=== PATIENT | female | born 1955 | race Caucasian/White ===

== ENCOUNTER 2020-03-24 07:47 | Outpatient (CLI) | payer MEDICARE, SELFPAY ==
--- NOTE | ~2020-03-24 | MM_ITS ---
EXAMINATION: MM screening [facility] w matthew HISTORY: Screening mammogram TECHNIQUE: Craniocaudal and mediolateral oblique 3-D tomosynthesis images were obtained and synthetic 2-D images were generated. CAD analysis was submitted and interpreted. COMPARISON: 03/09/2019, 02/18/2018, 01/15/2017 bilateral digital screening mammogram examinations BREAST PARENCHYMAL COMPOSITION: There are scattered areas of fibroglandular density. FINDINGS: There is no evidence of suspicious mass, calcification, or architectural distortion to sugg est malignancy in either breast. There has been no suspicious interval change. IMPRESSION: 1. No mammographic evidence of malignancy. 2. Recommend routine screening mammography in one year. BI-RADS Category 1: Negative Reviewed, dictated and finalized at location A.
== END 2020-03-24 07:48 | disposition home or self-care (01) ==
LOC: ANHIMG 07:54
PROVIDERS: PCP Internal Medicine; Visit Provider Internal Medicine
DX: Z12.31 Encounter for screening mammogram for malignant neoplasm of breast (principal)
CPT/HCPCS: 77063; 77067

== ENCOUNTER → 2021-06-12 10:15 | Outpatient (CLI) | payer MEDICARE, SELFPAY ==
--- NOTE | ~2021-06-12 | DEXA_ITS ---
Bone Density Report Name: Christine Perez Age: 65 Sex: Female Ethnicity: White Date of : 1955 Indication: postmenopausal; screening for osteoporosis; height loss; Referring Provider: Zehra Coleman Study: Bone densitometry was performed. Exam Date: June 12, 2021 Accession number: [id number] Bone Density: Region BMD T-score Z-score Classification AP Spine (L1, L2, L4) 1.244 1.9 3.8 Normal Femoral Neck (Left) 0.819 -0.3 1.4 Normal Total Hip (Left) 1.044 0.8 2.2 Normal Femoral Neck (Right) 0.838 -0.1 1.5 Normal Total Hip (Right) 1.072 1.1 2.4 Normal Total Hip Mean 1.058 1.0 2.3 Normal World Health Organization criteria for BMD impression classify patients as: Normal (T-score at or above -1.0), Osteopenia (T-score between -1.0 and -2.5), or Osteoporosis (T-score at or below -2.5). 10-year Fracture Risk: FRAX not reported because: All T-scores for Spine Total, Hip Total, Femoral Neck at or above -1.0 Clinical Information Provided by Patient: Has used the following medications: Vitamin D, Calcium Patient maximum height was 66 Menopause Age: 50 Drinks caffeinated beverages Onset of menses at age 13 Number of children 3 Impression: The patient has normal bone mass. Discussion: BONE DENSITY IS ABOVE THE MINIMUM DESIRABLE LEVEL AT ALL SKELETAL SITES TESTED. This patient?s bone mineral density is above the minimum desirable level (T-score -1.0 or better) at all sites measured. The patient should follow a healthful lifestyle (good nutrition with adequate calcium and vitamin D, and appropriate weight-bearing exercise). Follow-Up: Consider repeating this study in 5 years or sooner if there is some new clinical indication. Reported by: [facility] on 06/12/2021 10:43:00 AM. Reviewed, dictated and finalized at location ADarnell JOAQUIN
--- NOTE | ~2021-06-12 | MM_ITS ---
EXAMINATION: MM screening [facility] BI w matthew HISTORY: 03/24/2020 TECHNIQUE: Craniocaudal and mediolateral oblique 3-D tomosynthesis images were obtained and synthetic 2-D images were generated. CAD analysis was submitted and interpreted. COMPARISON: 03/24/2020, 03/09/2019, 02/18/2018 BREAST PARENCHYMAL COMPOSITION: There are scattered areas of fibroglandular density. FINDINGS: A stable intramammary lymph node is noted in the lower inner right breast. There is no evid ence of suspicious mass, calcification, or architectural distortion to suggest malignancy in either b reast. There has been no suspicious interval change. IMPRESSION: 1. No mammographic evidence of malignancy. 2. Recommend routine screening mammography in one year. BI-RADS Category 2: Benign finding(s). Reviewed, dictated and finalized at location A.
== END ==
PROVIDERS: PCP Internal Medicine; Visit Provider Student in an Organized Health Care Education/Training Program
DX: Z12.31 Encounter for screening mammogram for malignant neoplasm of breast (principal); Z78.0 Asymptomatic menopausal state
CPT/HCPCS: 77063; 77067; 77080

== ENCOUNTER 2022-07-01 09:59 | Outpatient (CLI) | payer MEDICARE, SELFPAY ==
--- NOTE | ~2022-07-01 | MM_ITS ---
EXAMINATION: MM screening [facility] w matthew HISTORY: Screening TECHNIQUE: Craniocaudal and mediolateral oblique 3-D tomosynthesis images were obtained and synthetic 2-D images were generated. CAD analysis was submitted and interpreted. COMPARISON: Comparison to multiple prior studies sequentially, with oldest reviewed study dated 09/01. BREAST PARENCHYMAL COMPOSITION: There are scattered areas of fibroglandular density. FINDINGS: There is no evidence of suspicious mass, calcification, or architectural distortion to sugg est malignancy in either breast. There has been no suspicious interval change. IMPRESSION: 1. No mammographic evidence of malignancy. 2. Recommend routine screening mammography in one year. BI-RADS Category 1: Negative Reviewed, dictated and finalized at location A.
== END 2022-07-01 10:00 | disposition home or self-care (01) ==
LOC: ANHIMG 10:01
PROVIDERS: PCP Internal Medicine; Visit Provider Internal Medicine
DX: Z12.31 Encounter for screening mammogram for malignant neoplasm of breast (principal)
CPT/HCPCS: 77063; 77067

== ENCOUNTER 2023-09-16 08:16 | Outpatient (CLI) | payer MEDICARE, SELFPAY ==
--- NOTE | ~2023-09-16 | MM_ITS ---
EXAMINATION: MM screening [facility] w matthew HISTORY: Screening TECHNIQUE: Craniocaudal and mediolateral oblique 3-D tomosynthesis images were obtained and synthetic 2-D images were generated. CAD analysis was submitted and interpreted. COMPARISON: Comparison to multiple prior studies sequentially, with oldest reviewed study dated 01/15. BREAST PARENCHYMAL COMPOSITION: Breast composed of scattered areas of fibroglandular density FINDINGS: There is no evidence of suspicious mass, calcification, or architectural distortion to sugg est malignancy in either breast. There has been no suspicious interval change. IMPRESSION: 1. No mammographic evidence of malignancy. 2. Recommend routine screening mammography in one year. BI-RADS Category 1: Negative Reviewed, dictated and finalized at location A.
== END 2023-09-16 08:17 | disposition home or self-care (01) ==
LOC: ANHIMG 08:17
PROVIDERS: PCP Internal Medicine; Visit Provider Internal Medicine
DX: Z12.31 Encounter for screening mammogram for malignant neoplasm of breast (principal)
CPT/HCPCS: 77063; 77067

== ENCOUNTER 2024-02-11 07:02 | Outpatient (CLI) | payer MEDICARE, SELFPAY ==
--- NOTE | ~2024-02-11 | MR_ITS ---
MRI of the left knee Clinical history: Pain Technique: Coronal proton density and proton density-weighted images, sagittal proton-density and T2 fat-sat images, and axial proton-density fat-saturated images were acquired. Findings: Anterior and posterior cruciate ligaments are intact. Medial collateral ligament and the la teral collateral ligament complex are intact. Popliteus tendon is intact. Medial and lateral menisci are intact, without definite tear. There is intrasubstance degenerative si gnal of the posterior horn of the medial meniscus. There is mild chondral thinning of the lateral femoral condyle. There is mild to moderate chondral th inning of the medial femoral condyle. 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 Femoral trochlear cartilage is mildly thinned. Small tricompartme ntal osteophytes are present. Extensor mechanism is intact. No significant joint effusion or Suggs's cyst. Impression: Mild to [id number] tricompartmental degenerative change, as detailed above, worst at the patell ofemoral compartment. No ligamentous injury or meniscal tear evident. Reviewed, dictated and finalized at location . Impression: Mild to [id number] tricompartmental degenerative change, as detailed abov e, worst at the patellofemoral compartment. No ligamentous injury or meniscal tear evident.
== END 2024-02-11 07:03 ==
LOC: MICIMG 07:05
PROVIDERS: PCP Family Medicine Sports Medicine; Visit Provider Internal Medicine
DX: M17.12 Unilateral primary osteoarthritis, left knee (principal)
CPT/HCPCS: 73721

== ENCOUNTER 2024-04-24 21:39 | Emergency (ER) | payer MEDICARE, SELFPAY ==
--- NOTE | ~2024-04-24 | XR_ITS ---
EXAMINATION: XR chest 1V portable DATE: 04/24/2024 22:36 INDICATION: Palpitations. TECHNIQUE: A single frontal view of the chest was obtained. COMPARISON: None. FINDINGS: There is mild atelectasis in the lower lung zones. No pleural effusion or pneumothorax. The heart size is normal. IMPRESSION: 1. Mild atelectasis in the lower lung zones. Reviewed, dictated and finalized at location E.
[2024-04-24 21:43] VITALS: BP 130/55; PULSE 69; RESP 12; TEMP 36.7; O2SAT 97
--- NOTE | 2024-04-24 21:43 | ECG_ITS ---
SEE SCANNED COPY FOR CONFIRMED REPORT MTDD
[2024-04-24 22:26] VITALS: BP 119/66; PULSE 71; RESP 15; O2SAT 97
[2024-04-24 22:35] LABS: Basophils Absolute Auto 0.1 K/mm3 (0.0-0.1); Basophils Percent Auto 0.8 % (0.2-1.2); Eosinophils Absolute Auto 0.3 K/mm3 (0-0.3); Hematocrit 38.8 % (37.0-47.0); Hemoglobin 12.7 g/dL (12.0-15.0); Immature Granulocyte Absolute 0.01 K/mm3 (0.00-0.031); Immature Granulocyte Percent A 0.2 % (0-0.5); Lymphocytes Absolute Auto 3.39 K/mm3 (0.9-3.2); Lymphocytes Percent Auto 51.5 % (18.3-44.2); Mean Corpuscular HGB Conc 32.7 g/dl (32-36); Mean Corpuscular Hemoglobin 29.3 pg (26-34); Mean Corpuscular Volume 89.4 fl (80-100); Mean Platelet Volume 12.3 fl (7.4-10.4); Monocytes Absolute Auto 0.7 K/mm3 (0.1-0.6); Monocytes Percent Auto 11.2 % (2.6-8.5); Neutrophils Absolute Auto 2.1 K/mm3 (1.3-6.7); Neutrophils Percent Auto 32.3 % (45.5-73.1); Platelet Count Result 203 k/mm3 (150-375); Red Blood Count 4.34 M/mm3 (4.2-5.4); White Blood Count 6.6 K/mm3 (4.5-10.0)
[2024-04-24 22:47] LABS: Alanine Aminotransferase 17 U/L (6-35); Albumin Level 4.4 g/dL (3.5-5.1); Alkaline Phosphatase 78 U/L (38-126); Anion Gap 7 mmol/L (4-12); Aspartate Amino Transferase 26 U/L (14-36); Bilirubin,Total 0.3 mg/dL (0.2-1.3); Blood Urea Nitrogen 19 mg/dL (7-17); Calcium 9.8 mg/dL (8.4-10.2); Carbon Dioxide 28 mmol/L (22-30); Chloride 108 mmol/L (98-107); Estimated CRCL calculation 52 ml/min; Estimated Glomerular Filt Rate > 60; Glucose 114 mg/dL (65-110); Magnesium 2.1 mg/dL (1.6-2.3); Potassium 3.9 mmol/L (3.4-5.0); Sodium 143 mmol/L (137-145)
[2024-04-24 22:53] LABS: D Dimer 1.06 ug/mL (<0.48)
[2024-04-24 22:57] LABS: Troponin I 0.012 ng/mL (0.000-0.034)
--- NOTE | 2024-04-24 23:40 | ED.GENADULT ---
HPI - General Adult General Chief complaint: Recheck/Abnormal Lab/Rx Stated complaint: tachy Time Seen by Provider: 04/24/24 21:49 Related Data Home Medications Medication Instructions Recorded Confirmed naproxen sodium 220 mg capsule 220 mg PO BID PRN 05/01/20 (Aleve) red yeast rice 600 mg capsule 600 mg PO DAILY 05/01/20 turmeric 400 mg capsule mg PO 05/01/20 Allergies Allergy/AdvReac Type Severity Reaction Status Date / Time No Known Allergies Allergy Mild Verified 04/24/24 21:53 [facility] Past Medical History Medical History High cholesterol Insomnia Surgical History Surgical History H/O toe surgery History of section x 3 History of open heart surgery Social History Social History Smoking status: Never smoker Second hand tobacco smoke exposure: No Alcohol intake: never Course Vital Signs Vital signs: Vital Signs Temperature 98.1 F 04/24/24 21:43 Pulse Rate 69 04/24/24 21:43 Respiratory Rate 12 04/24/24 21:43 Blood Pressure 130/55 L 04/24/24 21:43 Pulse Oximetry 97 04/24/24 21:43 Oxygen Delivery Room Air 04/24/24 21:43 Temperature 98.1 F 04/24/24 21:43 Pulse Rate 71 04/24/24 22:26 Respiratory Rate 15 04/24/24 22:26 Blood Pressure 119/66 04/24/24 22:26 Pulse Oximetry 97 04/24/24 22:26 Oxygen Delivery Room Air 04/24/24 21:43 Medical Decision Making Vital Signs Vital Signs: Vital Signs Temperature 98.1 F 04/24/24 21:43 Pulse Rate 69 04/24/24 21:43 Respiratory Rate 12 04/24/24 21:43 Blood Pressure 130/55 L 04/24/24 21:43 Pulse Oximetry 97 04/24/24 21:43 Oxygen Delivery Room Air 04/24/24 21:43 Temperature 98.1 F 04/24/24 21:43 Pulse Rate 71 04/24/24 22:26 Respiratory Rate 15 04/24/24 22:26 Blood Pressure 119/66 04/24/24 22:26 Pulse Oximetry 97 04/24/24 22:26 Oxygen Delivery Room Air 04/24/24 21:43 Lab Data 04/24/24 22:24 04/24/24 22:24 Labs: Lab Results 04/24/24 Range/Units 22:24 WBC 6.6 (4.5-10.0) K/mm3 RBC 4.34 (4.2-5.4) M/mm3 Hgb 12.7 (12.0-15.0) g/dL Hct 38.8 (37.0-47.0) % MCV 89.4 (80-100) fl MCH 29.3 (26-34) pg MCHC 32.7 (32-36) g/dl RDW 13.0 (11.5-14.5) % Plt Count 203 (150-375) k/mm3 MPV 12.3 H (7.4-10.4) fl Immature Gran % (Auto) 0.2 (0-0.5) % Neut % (Auto) 32.3 L (45.5-73.1) % Lymph % (Auto) 51.5 H (18.3-44.2) % [place] % (Auto) 11.2 H (2.6-8.5) % Eos % (Auto) 4.0 (0-4.4) % Baso % (Auto) 0.8 (0.2-1.2) % Lymph # (Auto) 3.39 H (0.9-3.2) K/mm3 [place] # (Auto) 0.7 H (0.1-0.6) K/mm3 Eos # (Auto) 0.3 (0-0.3) K/mm3 Baso # (Auto) 0.1 (0.0-0.1) K/mm3 Abs Immat Gran (auto) 0.01 (0.00-0.031) K/mm3 Absolute Neuts (auto) 2.1 (1.3-6.7) K/mm3 Absolute Nucleated RBC 0.000 (0.0-0.012) K/mm3 Nucleated RBC % 0.0 (0.0-0.2) % D-Dimer 1.06 H (<0.48) ug/mL Sodium 143 (137-145) mmol/L Potassium 3.9 (3.4-5.0) mmol/L Chloride 108 H (98-107) mmol/L Carbon Dioxide 28 (22-30) mmol/L Anion Gap 7 (4-12) mmol/L BUN 19 H (7-17) mg/dL Creatinine 0.80 (0.7-1.0) mg/dL Estim Creat Clear Calc 52 ml/min Estimated GFR > 60 (59 - ) Glucose 114 H (65-110) mg/dL Calcium 9.8 (8.4-10.2) mg/dL Magnesium 2.1 (1.6-2.3) mg/dL Total Bilirubin 0.3 (0.2-1.3) mg/dL AST 26 (14-36) U/L ALT 17 (6-35) U/L Alkaline Phosphatase 78 (38-126) U/L Troponin I 0.012 (0.000-0.034) ng/mL Total Protein 9.0 H (6.3-8.2) g/dL Albumin 4.4 (3.5-5.1) g/dL TSH (Reflex) 1.770 (0.465-4.68) uIU/mL Discharge Plan Discharge Prescriptions: No Action naproxen sodium [Aleve] 220 mg capsule 220 mg PO BID PRN red yeast rice 600 mg capsule 600 mg PO DAILY Rx Instructions:
--- NOTE | 2024-04-24 23:40 | ED.ARRPALP ---
HPI - Arrhythmia/Palpitations General Chief Complaint: Recheck/Abnormal Lab/Rx Stated Complaint: tachy Time Seen by Provider: 04/24/24 21:49 Source: patient Limitations: no limitations History of Present Illness HPI narrative: Patient is a 68-year-old female presents to the emergency department complaining of palpitations. Patient notes that her watch traction heart rate and the past 2 nights she has had brief episodes in which her heart rate spontaneously goes up to 120s to 130s when she has the rest and not feeling anxious and she does watch is a climb mid last for approximately 5 minutes and then goes away and when it is happening she sometimes feels like her heart is racing and has maybe some slight shortness of breath with this all goes away as the heart rate goes down. Patient notes that she does not have any history of any abnormal heart rhythms or thyroid disease and she has been overall maintaining well hydration and denies any caffeine or stimulant use or any new or change medications. Patient is seeing her doctor or [facility] an outpatient for something unrelated and so 1 a couple weeks ago and is scheduled to get a CTA of her chest for the coronary arteries in addition to an echocardiogram but was not having any of this at that time. Patient denies history of blood clots. Patient denies chest pain, lightheadedness, numbness, weakness. Related Data Home Medications Medication Instructions Recorded Confirmed naproxen sodium 220 mg capsule 220 mg PO BID PRN 05/01/20 (Aleve) red yeast rice 600 mg capsule 600 mg PO DAILY 05/01/20 turmeric 400 mg capsule mg PO 05/01/20 Allergies Allergy/AdvReac Type Severity Reaction Status Date / Time No Known Allergies Allergy Mild Verified 04/24/24 21:53 Review of Systems Review of Systems: All systems reviewed & are unremarkable except as noted in HPI and below PMFSH Past Medical History Medical History High cholesterol Insomnia Surgical History Surgical History H/O toe surgery History of section x 3 History of open heart surgery Social History Social History Smoking status: Never smoker Second hand tobacco smoke exposure: No Alcohol intake: never Comments At time of signature, I have reviewed and agree with nursing past medical, surgical, social and family history unless otherwise noted. Please see the nursing chart for further information. There is no relevant family history pertinent to the presenting complaint. Exam Narrative: CONST: No acute distress. Well nourished. HENMT: Head is normocephalic and atraumatic. Moist mucous membranes. No posterior oropharynx erythema. EYES: No conjunctival icterus, injection, or pallor. PERRL. NECK: No meningeal signs. No thyroid tenderness to palpation or palpable thyromegaly. RESP: Able to speak in full sentences. Normal respiratory effort. CTAB. CARDIO: Regular rate. Regular rhythm. 2+ DP and radial pulses bilaterally. GI: Nondistended. No tenderness to palpation. Soft. : No CVA tenderness to palpation. SKIN: No rashes or lesions noted on exposed skin. NEURO: Oriented x3. Moves all extremities. EXTREM/MSK/BACK: No pedal edema. PSYCH: Normal affect. Course Vital Signs Vital signs: Vital Signs Temperature 98.1 F 04/24/24 21:43 Pulse Rate 69 04/24/24 21:43 Respiratory Rate 12 04/24/24 21:43 Blood Pressure 130/55 L 04/24/24 21:43 Pulse Oximetry 97 04/24/24 21:43 Oxygen Delivery Room Air 04/24/24 21:43 Temperature 98.1 F 04/24/24 21:43 Pulse Rate 71 04/24/24 22:26 Respiratory Rate 15 04/24/24 22:26 Blood Pressure 119/66 04/24/24 22:26 Pulse Oximetry 97 04/24/24 22:26 Oxygen Delivery Room Air 04/24/24 21:43 MDM - Arrhythmia/Palpitations MDM Narrative Me
== END 2024-04-24 23:59 | disposition home or self-care (01) ==
PROVIDERS: Emergency Provider Student in an Organized Health Care Education/Training Program
DX: R00.2 Palpitations (principal); E78.00 Pure hypercholesterolemia, unspecified; R94.31 Abnormal electrocardiogram [ECG] [EKG]
CPT/HCPCS: 36415; 71045; 80053; 83735; 84443; 84484; 85025; 85380; 93005; 99284

== ENCOUNTER 2024-09-30 08:27 | Outpatient (CLI) | payer MEDICARE, SELFPAY ==
--- NOTE | ~2024-09-30 | MM_ITS ---
EXAMINATION: MM screening [facility] BI w matthew HISTORY: Screening mammogram TECHNIQUE: Craniocaudal and mediolateral oblique 3-D tomosynthesis images were obtained and synthetic 2-D images were generated. CAD analysis was submitted and interpreted. COMPARISON: 09/16/2023, 07/01/2022, 06/12/2021, 03/24/2020 BREAST PARENCHYMAL COMPOSITION:Not Dense. There are scattered areas of fibroglandular density. FINDINGS: No suspicious mass, calcification, or architectural distortion are identified in either sarath ast to suggest malignancy. There has been no suspicious interval change. IMPRESSION: No mammographic evidence of malignancy. Recommend routine screening mammography in one year. BI-RADS Category 1: Negative Reviewed, dictated and finalized at location .
== END 2024-09-30 08:28 | disposition home or self-care (01) ==
PROVIDERS: PCP Internal Medicine; Visit Provider Internal Medicine
DX: Z12.31 Encounter for screening mammogram for malignant neoplasm of breast (principal)
CPT/HCPCS: 77063; 77067

== ENCOUNTER 2025-11-03 08:52 | Outpatient (CLI) | payer MEDICARE, SELFPAY ==
--- NOTE | ~2025-11-03 | MM_ITS ---
EXAMINATION: MM screening chano BI w matthew HISTORY: Screening. TECHNIQUE: Craniocaudal and mediolateral oblique 3-D tomosynthesis images were obtained and synthetic 2-D images were generated. CAD analysis was submitted and interpreted. COMPARISON: 2023, 2022, and 2021 BREAST PARENCHYMAL COMPOSITION: Not Dense: There are scattered areas of fibroglandular FINDINGS: No suspicious masses are seen. There are no suspicious calcifications. No unexplained architectural distortion is seen. There are no skin or nipple abnormalities identified. There is no adenopathy seen on the images submitted. IMPRESSION: No mammographic evidence to suggest malignancy is seen. The patient may return to screening mammography as per ACR guidelines. BI-RADS 1 - Negative. Reviewed, dictated and finalized at location C. S LAW PROFESSOR
--- OUTSIDE RECORDS SUMMARY | 2025-11-03 09:21 | XMS_ITS | Encounter Summary ---
Author Organization [facility] Address [address] [place] [address] Phone Care Team Providers Care Psychology Physician Name Role Phone Hawk RunVandana Primary Care Provider [phone] Leandor Byrnes MD Unavailable [phone] Leandro Byrnes MD Unavailable [phone] Jason Bentley MD Unavailable [phone] Encounter Details Date Type Department Care Team (Latest Contact Info) Description 02/18/2018 Orders Only [facility] Scanning, Provider Social History Tobacco Use Types Packs/Day Years Used Date Smoking Tobacco: Never Assessed Comments Unknown Sex and Gender Information Value Date Recorded Sex Assigned at Not on file Legal Sex Female 11:15 PM [facility] Gender Identity Female 07/19/2019 6:16 PM CDT Sexual Orientation Straight 07/19/2019 6: 17 PM CDT documented as of this encounter Plan of Treatment Upcoming Encounters Date Type Department Care Team (Late st Contact Info) Description 11/10/2025 7:15 AM [facility] Hospital Encounter [address] [address] documented as of this encounter Procedures Procedure Name Priority Date/Time Associated Diagnosis Comments SCAN - RADIOLOGY/IMAGING 02/18/2018 documented in this encounter Results * SCAN - RADIOLOGY/IMAGING (02/18/2018) Anatomical Region Laterality Modality Other us Provider Scanning Final Result documented in this encounter Visit Diagnoses Not on filedocumented in this encounter Care Teams Psychology Physician Relationship Specialty Start Date End Date Vandana Monroy DO PCP - General Internal Medicine 05/27/18 Leandro Byrnes MD Medical Oncologist/Hematologis t Hematology and Oncology 06/25/18 02/05/23 Leandro Byrnes MD Medical Oncologist/Hematologis t Hematology and Oncology 02/06/23 04/11/24 Jason Bentlye MD [address] [address] Consulting Physician Clinical Cardiac Electrophysiology 10/05/24 documented as of this encounter
--- OUTSIDE RECORDS SUMMARY | 2025-11-03 09:21 | XMS_ITS | Clinical Summary ---
Author Organization [facility] Address [address] [place] [address] Care Team Providers Care Professor Of History Name Role Phone Vandana Monroy DO Primary Care Provider [phone] Jason Bentley MD Unavailable [phone] Allergies Active Allergy Reactions Criticality Noted Date Comments Adhesive Blisters High 12/08/2024 TEGADERM Medications zolpidem (AMBIEN) 5 mg tabletIndicati ons:Sleep-Onse t Insomnia as needed 0 8 Active fluticasone propionate (FLONASE) 50 mcg/actuation nasal spray Administer 1 spray into affected nostril(s) as needed 2 Active alirocumab (Praluent Pen) 150 mg/mL pen injector Inject 150 mg under the skin every 2 (two) weeks 6 mL 3 5 Active alirocumab (Praluent Pen) 150 mg/mL pen injector INJECT 150 MG UNDER THE SKIN EVERY 2 (TWO) WEEKS 4 mL 5 5 10/17/20 25 Discontinu ed(Reorder ) Active Problems Problem Noted Date Diagnosed Date Cardiac arrhythmia 11/10/2024 Atrial tachycardia 11/10/2024 Assessment & Plan (12/26/2024 5:00 PM ASSET PROTECTION ASSISTANT): -Status post catheter ablation with Dr. Bentley -Remains off any rate lowering/limiting medications -EKG demonstrates sinus rhythm -she denies any reoccurrence of her atrial tachycardia -follow up in 6 months for a 12 lead EKG and clinic visit Assessment & Plan (11/10/2024 9:37 PM ASSET PROTECTION ASSISTANT): -Symptomatic paroxysmal atrial tachycardia. -Recent event monitor showed multiple episodes of atrial tachycardia -During these episodes she reports shortness of breath, tachy palpitations, fatigue. These can last 5 minutes to 2 hours in duration. -Remains compliant on atenolol and diltiazem, continues to experience frequent breakthroughs -EKG demonstrates sinus rhythm -We discussed possible management of her atrial arrhythmia including medication changes versus catheter ablation -Patient does not wish to try anymore medications as she feels she does not tolerate them well and it was hard to titrate them up based on her low heart rates -she was interested in pursuing catheter ablation for further management of her atrial arrhythmia. -We discussed the risks, benefits, procedure, and postprocedure care. Patient was agreeable to pursue. -Schedule patient for: Atrial tachycardia ablation [id number] Mc Gil Arthralgia of left knee 10/11/2024 Cough 10/11/2024 Foot pain 10/11/2024 It band syndrome, right 10/11/2024 Palpitations 10/11/2024 Spinal stenosis of lumbar region 10/11/2024 Vertigo 10/11/2024 Tachycardia 10/05/2024 Assessment & Plan (10/05/2024 1:14 PM ASSET PROTECTION ASSISTANT): - Symptomatic tachy palpitations, shortness a breath, headache, and fatigue - apple watch reported atrial fibrillation with rates as high as the 1 teens to 130s. - EKG today demonstrates sinus bradycardia - not currently anticoagulated - [id number] score is 2 ( age, gender) - we will place the patient on a event monitor to evaluate her atrial arrhythmia burden or other arrhythmias that are causing these symptoms. - Follow up in 3 months for a 12 lead EKG and clinic visit Abnormal echocardiogram 05/25/2024 Neck pain 07/04/2022 Shoulder pain 07/04/2022 Personal history of COVID-19 11/21/2021 Insomnia 11/09/2020 Family history of Alzheimer's disease 03/28/2020 Benign paroxysmal positional vertigo 11/04/2019 Hyperlipidemia 11/04/2019 Muscle pain 11/04/2019 MGUS (monoclonal gammopathy of unknown significa nce) 06/08/2018 Abnormal liver function tests 01/09/2018 Dyslipidemia 01/09/2018 Overview (05/22/2021): Patient wishes not to take the statins or any other medications. Last nonfasting LDL is 184. History of congenital heart disease 01/09/2018 Overview (05/22/2021): Apparently patient had repair of the hole in the heart in 9 Statin intolerance 01/09/2018 Overview (05/22/2021): Apparently he tried low-dose to statin in the past and she did not tolerate. The name of the medicine is unknown at this time. Resolved Problems Problem Noted Date Diagnosed Date Resolved Date Paroxysmal atrial fibrillation 10/05/2024 10/05/2024 Encounters Date Type Department Care Team Description 10/17/2025 9:45 AM ASSET PROTECTION ASSISTANT Office Visit 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 from Last 3 Months Immunizations Immunization Administration Dates Next Due Influenza, Quadrivalent, Split, Intramuscular ,09/05/2015 Influenza, Quadrivalent, Spl it, Preservative Free, Intramuscular 09/30/2014 Influenza, Split 08/25/2013 Moderna SARS-CoV-2 Monovalent Vaccination (12+ Y RS) 11/29/2021 Tdap 01/26/2015 Surgical History Surgery Date Site/Laterality Comments COLONOSCOPY 05/26/20252014 SECTION CARDIAC SURGERY TUBAL LIGATION 12/01/1980 - 11/30/1981 Medical History Medical History Date Comments MGUS (monoclonal gammopathy of unknown significance) Hypercholesteremia Covid-19 11/25/2020 patient had COVI D-18 Nov 2020. MGUS (monoclonal gammopathy of unknown significance) MGUS (monoclonal gammopathy of unknown significance) Monoclonal gammopathy Family History Medical History Relation Name Comments Diabetes Brother Jaxson Boris Ulcerative colitis Daughter No Known Problems Father Alzheimer's disease Maternal Grandmother Harleen Duggan Alzheimer's disease Mother Sailaja Thomas Memory loss Sister Mellisa Gooden Relation Name Status Comments Brother Jaxson Escalante Daughter Alive Father Maternal Grandmother Harleen Duggan Mother Sailaja Thomas Sister Mellisa Gooden Social History Tobacco Use Types Packs/Day Years Used Date Smoking Tobacco: Never Smokeless Tobacco: Never Tobacco Cessation:Counseling Given: Not Answered Alcohol Use Standard Drinks/Week Comments Not Currently 0 (1 standard drink = 0.6 oz pur e alcohol) AUDIT-C Answer Date Recorded Q1: How often do you have a drink containing alcohol? Never 05/26/2025 Q2: How many drinks containi ng alcohol do you have on a typical day when you are drinking? Patient does not drink Q3: How often do you have si x or more drinks on one occasion? Never 05/26/2025 Personal Safety Answer Date Recorded Have you ever been in or are you currently in a harmful physical or emotional relationship or is someone making you feel afraid or unsafe? Denies 05/26/2025 Comments No Sex and Gender Information Value Date Recorded Sex Assigned at Not on file Legal Sex Female 11:15 PM ASSET PROTECTION ASSISTANT Gender Identity Female 07/19/2019 6:16 PM CDT Sexual Orientation Straight 07/19/2019 6: 17 PM CDT Last Filed Vital Signs Vital Sign Reading Time Taken Comments Blood Pressure 108/62 10/17/2025 9:14 AM ASSET PROTECTION ASSISTANT Pulse 62 10/17/2025 9:14 AM ASSET PROTECTION ASSISTANT Temperature 36.3 C (97.3 F) 06/16/2025 11:12 AM CDT Respiratory Rate 20 06/16/2025 11:12 AM CDT Oxygen Saturation 96% 10/17/2025 9:14 AM ASSET PROTECTION ASSISTANT Inhaled Oxygen Concentration - - Weight 70.3 kg (155 lb) 10/17/2025 9:14 AM ASSET PROTECTION ASSISTANT Height 165.1 cm (5' 5) 10/17/2025 9:14 AM ASSET PROTECTION ASSISTANT Body Mass Index 25.79 10/17/2025 9:14 AM ASSET PROTECTION ASSISTANT Plan of Treatment Upcoming Encounters Date Type Department Care Team (Late st Contact Info) Description 11/10/2025 7:15 AM ASSET PROTECTION ASSISTANT Hospital Encounter [address] [address] Health Maintenance Due Date Last Done Comments Breast Cancer Screening-Mammogram 1955 Depression Screening 1955 Hepatitis C Screening 1955 Osteoporosis Screening-Bone Density Scan 1955 Hepatitis B Screening 1972 Pneumococcal vaccine 65+ (1 of 1 - PCV) 2004 Zoster Vaccine (1 of 2) 2004 Well Visit 65+ 2019 DTaP/Tdap/Td Vaccine (2 - Td or Tdap) 01/26/2025 01/26/2015 Covid-19 Vaccine (4 - 2024-2 6 season) 2025 11/29/2021, 03/26/2021, 03/05/2021 Influenza Vaccine (#1) 2025 , 09/05/2015, 09/30/2014, Additional history exists Fall Risk Assessment 05/26/2026 05/26/2025 Colon Cancer Screening-Colonoscopy 05/26/2035 05/26/2025 Colon Cancer Screening-CT Colonography Discontinued 05/26/2025 Colon Cancer Screening-DNA Stool Discontinued 05/26/20 Colon Cancer Screening-FIT Discontinued 05/26/2025 Colon Cancer Screening-Sigmoidoscopy Discontinued 05/26/2025 Medical Devices Implanted Type Area Club Waiter/Waitress Device Identifier Shelf Expiration Date Model / Serial / Lot [employer] Device Closure Vascade Od5 Fr Femoral Artery [id number] - [id number] - [id number] Implanted:Qty: 1 on 12/02/2024 by Jason Bentley MD at [facility] [employer] 09/07/2026 700-500DX- 05U / [id number] / [id number] [employer] Device Closure Vascade Od5 Fr Femoral Artery [id number] - [id number] - [id number] Implanted:Qty: 1 on 12/02/2024 by Jason Bentley MD at [facility] [employer] 09/07/2026 700-500DX- 05U / [id number] [id number] / [id number] [employer] Device Closure Vascade Od5 Fr Femoral Artery [id number] - [id number] - [id number] Implanted:Qty: 1 on 12/02/2024 by Jason Bentley MD at [facility] [employer] 09/07/2026 700-500DX- 05U / [id number] [id number] / [id number] [employer] Device Vascular Closure Femoral Artery Bioabsorbable Dual Method Vascade 6-7fr Collagen [id number] - [id number] - [id number] Implanted:Qty: 1 on 12/02/2024 by Jason Bentley MD at [facility] [employer] 09/27/2026 [id number]-0 5U / [id number] / [id number] [employer] Vascade Mvp 6-12fr Venous Closure [id number] - [id number] - [id number] Implanted:Qty: 1 on 12/02/2024 by Jason Bentley MD at [facility] [employer] 08/17/2026 [id number] 0U / [id number] / [id number] Procedures Procedure Name Priority Date/Time Associated Diagnosis Comments COLONOSCOPY 05/26/2025 7:51 AM CDT from Last 3 Months or Most Recently Relevant to Health Maintenance Results * Colonoscopy (05/26/2025 7:51 AM CDT) Anatomical Region Laterality Modality Other Narrative Procedure Note Ricky Contreras IV, MD - 05/26/2025 7:51 AM CDT [facility] Patient Name: Christine Perez Procedure Date: 05/26/2025 7:51 AM Date of : 1955 Admit Type: Outpatient Age: 69 Gender: Female Attending MD: Ricky Contreras Iv, M.D. Room: [facility] ROOM 04 Note Status: Finalized Procedure: Colonoscopy Indications: Screening for colorectal malignant neoplasm Referring MD: Providers: Ricky Contreras Iv, M.D. Medicines: See the other procedure note for documentation ofthe administered medications Complications: No immediate complications. Estimated blood loss: Minimal. Estimated Blood Loss: Estimated blood loss was minimal. Procedure: Pre-Anesthesia Assessment: - See the other procedure note for documentation of the pre-procedure assessment. The benefits, risks and alternatives of theprocedure and sedation were discussed and informed consentwas obtained. All questions were answered. Please referto the signed informed consent document in the medical record. The scope was passed under direct vision.The PCF-UI270H colonoscope was introduced through theanus and advanced to the cecum, identified byappendiceal orifice and ileocecal valve. The colonoscopy was performed without difficulty. The patient tolerated the procedure well. The quality of the bowel preparation was good. The ileocecal valve,appendiceal orifice, and rectum were photographed. Findings: Four sessile polyps were found in the mid sigmoid colon and proximal ascending colon. The polyps were 2 to 4 mm in size. These polyps were removed with a hot biopsy forceps. Resection and retrieval werecomplete. A 10 mm polyp was found in the distal ascending colon. The polyp was semi-sessile. The polyp was removed with a hot snare. Resection and retrieval were complete. Verification of patient identification forthe specimen was done by the soldering technician. Estimated blood loss wasminimal. A 6 mm polyp was found in the recto-sigmoid colon. The polyp was semi-sessile. The polyp was removed with a hot snare. Resection and retrieval were complete. Hemorrhoids were found on perianal exam. Impression: - Four 2 to 4 mm polyps in the mid sigmoid colonand in the proximal ascending colon, removed with a hot biopsy forceps. Resected and retrieved. - One 10 mm polyp in the distal ascending colon, removed with a hot snare. Resected and retrieved. - One 6 mm polyp at the recto-sigmoid colon,removed with a hot snare. Resected and retrieved. - Hemorrhoids found on perianal exam. Recommendation: - Discharge patient to home (ambulatory). - Resume previous diet. - Continue present medications. - Repeat colonoscopy in 3 years for surveillance. aMnuel Paz Ricky Contreras Iv, M.D. 05/26/2025 8:38:02 AM Number of Addenda: 0 Note Initiated On: 05/26/2025 7:51 AM Recognized by the [employer] for promoting quality in endoscopy Ricky Contreras IV, MD ENDOSCOPY PROCEDURES F inal Result from Last 3 Months or Most Recently Relevant to Health Maintenance Insurance MEDICARE [facility] MEDICARE SUPPLEMENT MEDICARE Member Subscriber Plan / P[facility] Name:Ana Christine S Member ID:[id number] Relation to Subscriber:Self Name:Christine Perez Subscriber ID:[id number] Payer ID:[id number] Group ID:Not on file Type:MEDICARE TRADITIONAL Address: [address] [address] [facility] MEDICARE SUPPLEMENT Member Subscriber Plan / Payer [facility]Present) Name:Christine Perez Relation to Subscriber:Self Name:Christine Perez Payer ID:[id number] (NAIC) Type:COMMERCIAL Address: [address] [address] Care Teams Professor Of History Relationship Specialty Start Date End Date Vandana Monroy DO PCP - General Internal Medicine 05/27/18 Jason Bentley MD [address] [address] Consulting Physician Clinical Cardiac Electrophysiology 10/05/24
--- OUTSIDE RECORDS SUMMARY | 2025-11-03 09:21 | XMS_ITS | Encounter Summary ---
Author Organization [facility] Facility Care Team Providers Care Heavy Forging Machine Operator Name Role Phone Eliana, Vandana Dominique DO Primary Care Provider [phone] Leandro Byrnes MD Unavailable [phone] Leandro Byrnes MD Unavailable [phone] Jason Bentley MD Unavailable [phone] Encounter Details Date Type Department Care Team (Latest Contact Info) Description 11/28/2017 Orders Only [facility]INCON[facility] ProviderPapi MD [address] [place] [id number] Social History Tobacco Use Types Packs/Day Years Used Date Smoking Tobacco: Never Assessed Comments Unknown Sex and Gender Information Value Date Recorded Sex Assigned at Not on file Legal Sex Female 11:15 PM ACCOUNTING ASSISTANT Gender Identity Female 07/19/2019 6:16 PM CDT Sexual Orientation Straight 07/19/2019 6: 17 PM CDT documented as of this encounter Plan of Treatment Upcoming Encounters Date Type Department Care Team (Late st Contact Info) Description 11/10/2025 7:15 AM ACCOUNTING ASSISTANT Hospital Encounter [address] [address] documented as of this encounter Procedures Procedure Name Priority Date/Time Associated Diagnosis Comments SCAN - LABS 12/23/2017 12:00 AM ACCOUNTING ASSISTANT documented in this encounter Results * SCAN - LABS (12/23/2017 12:00 AM ACCOUNTING ASSISTANT) Narrative 12/23/2017 12:00 AM ACCOUNTING ASSISTANT Ordered by an unspecified provider. us Historical Provider Final Res ult documented in this encounter Visit Diagnoses Not on filedocumented in this encounter Care Teams Heavy Forging Machine Operator Relationship Specialty Start Date End Date Vandana Monroy DO PCP - General Internal Medicine 05/27/18 Leandro Byrnes MD Medical Oncologist/Hematologis t Hematology and Oncology 06/25/18 02/05/23 Leandro Byrnes MD Medical Oncologist/Hematologis t Hematology and Oncology 02/06/23 04/11/24 Jason Bentley MD [address] [address] Consulting Physician Clinical Cardiac Electrophysiology 10/05/24 documented as of this encounter
== END 2025-11-03 08:53 | disposition home or self-care (01) ==
LOC: ANHFOHIMG 08:55
PROVIDERS: PCP Internal Medicine; Visit Provider Internal Medicine
DX: Z12.31 Encounter for screening mammogram for malignant neoplasm of breast (principal)
CPT/HCPCS: 77063; 77067